=== PATIENT | female | born 1970 | race Asian ===

== ENCOUNTER 2017-09-18 21:38 | Emergency (ER) | payer SELFPAY ==
[~2017-09-18] VITALS: Ht 160 cm; Wt 109.0 kg
[~2017-09-18 21:38] MED LIST: CEFD300C37 PO; DOXY50CA4 PO; FLUT1DIS3 INH; PRED10TA14 PO
[2017-09-18 22:26] VITALS: BP 145/70
[2017-09-18 22:44] LABS: RAPID INFLUENZA A Negative (Negative); RAPID INFLUENZA B Negative (Negative)
[2017-09-18] MEDS ORDERED: KETOROLAC 30 MG/1 ML ONE (22:59)
[2017-09-18] MEDS ORDERED: KETOROLAC 30 MG/1 ML IM ONE (23:00)
== END 2017-09-18 23:35 | disposition home or self-care (01) ==
LOC: ED 23:05
DX: J02.8 Acute pharyngitis due to other specified organisms (principal); J45.909 Unspecified asthma, uncomplicated
CPT/HCPCS: 71020; 87081; 87400; 87880; 93005; 96372; 99285; J1885

== ENCOUNTER 2021-01-24 23:58 | Emergency (ER) | payer SELFPAY ==
[~2021-01-24] VITALS: Ht 160 cm; Wt 113.0 kg
[2021-01-25] VITALS: BP 170/87
[2021-01-25] MEDS ORDERED: BUPIVACAINE 0.25% ONE (00:21)
[2021-01-25] MEDS ORDERED: LIDOCAINE-MPF 1%, 5ML ONE (00:22)
[2021-01-25] MEDS ORDERED: LIDOCAINE 1%, 2ML INFIL ONE (00:30)
[2021-01-25] MEDS ORDERED: BUPIVACAINE 0.25% INFIL ONE (00:30)
--- NOTE | 2021-01-25 00:37 | NUR ---
pt resting in gurney, pain more during palpation. i/d ready, erp aware. daughter at bedside
--- NOTE | 2021-01-25 01:01 | NUR ---
BREAK RN: PA AT BEDSIDE
--- NOTE | 2021-01-25 01:12 | NUR ---
Patient given discharge instructions and they have confirmed that they understand the instructions. Patient ambulatory with steady gait.
== END 2021-01-25 01:15 | disposition home or self-care (01) ==
LOC: ED 01-25 01:09
DX: K04.7 Periapical abscess without sinus (principal); K02.9 Dental caries, unspecified; F17.210 Nicotine dependence, cigarettes, uncomplicated; Z72.9 Problem related to lifestyle, unspecified; J45.909 Unspecified asthma, uncomplicated
CPT/HCPCS: 41800; 99406